=== PATIENT | male | born 1965 | race Caucasian/White ===

== ENCOUNTER 2017-01-13 21:22 | Emergency (ER) | payer MEDICAID ==
[~2017-01-13] VITALS: Ht 172.7 cm; Wt 56.8 kg
[~2017-01-13 21:22] MED LIST: ARIP10TA14 PO
[2017-01-13 22:44] VITALS: BP 141/82
== END 2017-01-13 23:17 | disposition left against medical advice (07) ==
LOC: EMS 21:28
DX: M25.532 Pain in left wrist (principal); R07.9 Chest pain, unspecified; F25.9 Schizoaffective disorder, unspecified; F15.10 Other stimulant abuse, uncomplicated; F17.210 Nicotine dependence, cigarettes, uncomplicated
CPT/HCPCS: 93005; 99285; 99406

== ENCOUNTER 2017-08-29 09:56 | Emergency (ER) | payer MEDICAID ==
[~2017-08-29] VITALS: Ht 172.7 cm; Wt 56.8 kg
[~2017-08-29 09:56] MED LIST changes: -ARIP10TA14 PO; +ARIP10TA8 PO
[2017-08-29 10:38] LABS: BASOPHILS % (AUTO) 0.5 % (0.0-2.0); EOSINOPHILS % (AUTO) 0.9 % (1.0-6.0); HEMATOCRIT 39.8 % (41-53); HEMOGLOBIN 13.4 g/dL (13.5-17.5); LYMPHOCYTES # (AUTO) 1.9 K/uL (1.0-4.8); LYMPHOCYTES % (AUTO) 27.6 % (22.0-44.0); MEAN CORPUSCULAR HEMOGLOBIN 31.2 pg (26.0-34.0); MEAN CORPUSCULAR HGB CONC 33.8 G/dL (31.0-37.0); MEAN CORPUSCULAR VOLUME 93 fL (80-100); MONOCYTES # (AUTO) 0.6 K/uL (0.1-1.0); MONOCYTES % (AUTO) 8.7 % (2.0-9.0); NEUTROPHILS # (AUTO) 4.2 K/uL (1.8-7.7); NEUTROPHILS % (AUTO) 62.3 % (40.0-70.0); PLATELET COUNT (AUTO) 362 K/uL (150-450); RED CELL DISTRIBUTION WIDTH 14.7 % (11.5-14.5)
[2017-08-29 10:52] LABS: ANION GAP 2 mmol/L (8-16); CALCIUM, TOTAL 8.4 mg/dL (8.8-10.5); CARBON DIOXIDE 30 mmol/L (22-29); CHLORIDE 103 mmol/L (98-107); CREATININE 0.91 mg/dL (0.60-1.30); GLOMERULAR FILTR. RATE CALC > 60 mL/min (>60); GLUCOSE,RANDOM 83 mg/dL (70-110); POTASSIUM 4.4 mmol/L (3.5-5.1); SODIUM SERUM 135 mmol/L (136-145); UREA NITROGEN, BLOOD 12 mg/dL (7-18)
[2017-08-29 10:54] LABS: AMPHET/METH SCREEN,URINE POSITIVE (NEGATIVE); BARBITURATE SCREEN, URINE NEGATIVE (NEGATIVE); BENZODIAZEPINES SCREEN,URINE NEGATIVE (NEGATIVE); CANNABINOID SCREEN,URINE NEGATIVE (NEGATIVE); COCAINE SCREEN,URINE NEGATIVE (NEGATIVE); METHADONE SCREEN, URINE NEGATIVE (NEGATIVE); OPIATE SCREEN,URINE NEGATIVE (NEGATIVE); PHENCYCLIDINE SCREEN,URINE NEGATIVE (NEGATIVE)
[2017-08-29 10:56] LABS: ALANINE AMINOTRANSFERASE 35 U/L (12-78); ALBUMIN 3.1 g/dL (3.4-5.0); ALKALINE PHOSPHATASE 83 U/L (46-116); ASPARTATE AMINOTRANSFERASE 25 U/L (15-37); BILIRUBIN,TOTAL 0.2 mg/dL (0.1-1.0); LIPASE 99 U/L (73-393); TOTAL PROTEIN, SERUM 6.1 g/dL (6.4-8.2)
[2017-08-29 10:59] LABS: ACETAMINOPHEN < 2 mcg/mL (10-30)
[2017-08-29 10:59] LABS: APPEARANCE,URINE CLEAR (CLEAR); BILIRUBIN,URINE NEGATIVE (NEGATIVE); GLUCOSE, URINE (UA) NEGATIVE (NEGATIVE); KETONES,URINE NEGATIVE (NEGATIVE); LEUKOCYTE ESTERASE ,URINE NEGATIVE (NEGATIVE); NITRATE,URINE NEGATIVE (NEGATIVE); OCCULT BLOOD,URINE NEGATIVE (NEGATIVE); PH,URINE 5.5 (5.0-8.0); PROTEIN,URINE NEGATIVE (NEGATIVE)
[2017-08-29 11:06] LABS: SALICYLATE 2.9 mg/dL (2.8-20.0)
[2017-08-29] MEDS ORDERED: MAGNESIUM CITRATE 300 ML ORAL SOLUTION PO ONE (12:15)
[2017-08-29 12:41] VITALS: BP 134/76
== END 2017-08-29 12:55 | disposition home or self-care (01) ==
LOC: EMS 09:59
DX: F15.10 Other stimulant abuse, uncomplicated (principal); F17.210 Nicotine dependence, cigarettes, uncomplicated; F31.9 Bipolar disorder, unspecified; F20.9 Schizophrenia, unspecified; Z71.6 Tobacco abuse counseling
CPT/HCPCS: 36415; 74022; 80053; 80307; 81003; 83690; 85025; 93005; 99285; 99406; G0480 ×2; G0481

== ENCOUNTER 2018-03-27 11:04 | Inpatient (IN) | payer MEDICAID ==
[~2018-03-27] VITALS: Ht 172.7 cm; Wt 56.2 kg
[2018-03-27 13:15] LABS: AMPHET/METH SCREEN,URINE POSITIVE (NEGATIVE); BARBITURATE SCREEN, URINE NEGATIVE (NEGATIVE); BENZODIAZEPINES SCREEN,URINE NEGATIVE (NEGATIVE); CANNABINOID SCREEN,URINE NEGATIVE (NEGATIVE); COCAINE SCREEN,URINE NEGATIVE (NEGATIVE); METHADONE SCREEN, URINE NEGATIVE (NEGATIVE); OPIATE SCREEN,URINE POSITIVE (NEGATIVE)
[2018-03-27] MEDS ORDERED: HALOPERIDOL LACTATE 5 MG/ML VIAL IM ONE (13:15)
[2018-03-27] MEDS ORDERED: LORazepam 2 MG/ML VIAL IM ONE (13:15)
[2018-03-27 13:16] LABS: BASOPHILS % (AUTO) 1.2 % (0.0-2.0); HEMOGLOBIN 14.6 g/dL (13.5-17.5); LYMPHOCYTES # (AUTO) 2.5 K/uL (1.0-4.8); LYMPHOCYTES % (AUTO) 31.9 % (22.0-44.0); MEAN CORPUSCULAR HEMOGLOBIN 32.2 pg (26.0-34.0); MEAN CORPUSCULAR HGB CONC 34.9 G/dL (31.0-37.0); MEAN CORPUSCULAR VOLUME 92 fL (80-100); MONOCYTES # (AUTO) 0.5 K/uL (0.1-1.0); MONOCYTES % (AUTO) 6.7 % (2.0-9.0); NEUTROPHILS # (AUTO) 4.5 K/uL (1.8-7.7); NEUTROPHILS % (AUTO) 57.2 % (40.0-70.0); PLATELET COUNT (AUTO) 360 K/uL (150-450); RED BLOOD CELL COUNT(AUTO) 4.54 MIL/uL (4.50-5.90)
[2018-03-27 13:25] LABS: PHENCYCLIDINE SCREEN,URINE NEGATIVE (NEGATIVE)
[2018-03-27 13:30] LABS: ANION GAP 7 mmol/L (8-16); CALCIUM, TOTAL 8.5 mg/dL (8.8-10.5); CARBON DIOXIDE 27 mmol/L (22-29); CHLORIDE 104 mmol/L (98-107); CREATININE 0.93 mg/dL (0.60-1.30); GLOMERULAR FILTR. RATE CALC > 60 mL/min (>60); GLUCOSE,RANDOM 113 mg/dL (70-110); SODIUM SERUM 138 mmol/L (136-145); UREA NITROGEN, BLOOD 18 mg/dL (7-18)
[2018-03-27 13:35] LABS: ALANINE AMINOTRANSFERASE 30 U/L (12-78); ALBUMIN 3.4 g/dL (3.4-5.0); ALKALINE PHOSPHATASE 91 U/L (46-116); ASPARTATE AMINOTRANSFERASE 25 U/L (15-37); BILIRUBIN,TOTAL 0.3 mg/dL (0.1-1.0); TOTAL PROTEIN, SERUM 6.4 g/dL (6.4-8.2)
[2018-03-27 17:53] LABS: APPEARANCE,URINE CLOUDY (CLEAR); GLUCOSE, URINE (UA) NEGATIVE (NEGATIVE); KETONES,URINE TRACE mg/dL (NEGATIVE); LEUKOCYTE ESTERASE ,URINE NEGATIVE (NEGATIVE); NITRATE,URINE NEGATIVE (NEGATIVE); OCCULT BLOOD,URINE NEGATIVE (NEGATIVE); PROTEIN,URINE NEGATIVE (NEGATIVE); UROBILINOGEN,URINE 0.2 mg/dL (<=1.0)
[2018-03-27 17:58] LABS: BILIRUBIN,URINE PRELIM. POSITIVE (NEGATIVE)
[2018-03-27 18:07] LABS: CALCIUM OXALATE CRYSTALS,UR Many /LPF (None Seen)
[2018-03-27 18:08] LABS: AMORPHOUS SEDIMENT,UR Moderate /LPF (None Seen); BACTERIA,URINE Moderate /HPF (None Seen); RBC,URINE None Seen /HPF (0-2); WBC,URINE 0-2 /HPF (0-5)
[2018-03-28] MEDS ORDERED: DOCUSATE SODIUM 100 MG CAPSULE PO PRN (07:45)
[2018-03-28] MEDS ORDERED: GuaiFENesin/D-METHORPHAN [SUGAR-FREE] 200-20MG/10 ML SYRUP UDCUP PO PRN (07:45)
[2018-03-28] MEDS ORDERED: PETROLATUM,WHITE 71 GM JELLY TP PRN (07:45)
[2018-03-28] MEDS ORDERED: ACETAMINOPHEN 325 MG TABLET PO PRN (07:45)
[2018-03-28] MEDS ORDERED: CloNIDine HCL 0.1 MG TABLET PO PRN (07:45)
[2018-03-28] MEDS ORDERED: LOPERAMIDE HCL 2 MG CAPSULE PO PRN (07:45)
[2018-03-28] MEDS ORDERED: MAGNESIUM HYDROXIDE SUSPENSION 30 ML UDCUP PO PRN (07:45)
[2018-03-28] MEDS ORDERED: ONDANSETRON HCL 4 MG TABLET PO PRN (07:45)
[2018-03-28] MEDS ORDERED: MAG HYDROX/AL HYDROX/SIMETH ES 30 ML SUSPENSION UDCUP PO PRN (07:45)
[2018-03-28] MEDS ORDERED: NICOTINE 14 MG/24 HOUR PATCH TD PRN (07:45)
[2018-03-28 08:30] VITALS: BP 132/68
[2018-03-28] MEDS: NICOTINE 21 MG/24 HOUR PATCH TD SCH (08:35)
[2018-03-28] MEDS ORDERED: ARIPiprazole 10 MG TABLET PO SCH (10:45)
[2018-03-28] MEDS: LITHIUM CARBONATE 300 MG CAPSULE PO SCH ×2 (11:22→16:28)
[2018-03-28] MEDS: LORazepam 2 MG TABLET PO PRN (16:28)
[2018-03-28] MEDS: HALOPERIDOL 5 MG TABLET PO PRN (16:28)
[2018-03-28 18:22] VITALS: BP 133/80
[2018-03-29 04:38] VITALS: BP 126/99
[2018-03-29 08:22] VITALS: BP 117/70
[2018-03-29] MEDS: NICOTINE 21 MG/24 HOUR PATCH TD SCH (08:22)
[2018-03-29] MEDS: LITHIUM CARBONATE 300 MG CAPSULE PO SCH ×2 (08:22→16:21)
[2018-03-29] MEDS: IBUPROFEN 400 MG TABLET PO PRN (08:22)
[2018-03-29] MEDS: LORazepam 2 MG TABLET PO PRN ×2 (08:29→16:21)
[2018-03-29 08:34] VITALS: BP 117/70
[2018-03-29 08:54] LABS: CHOL/HDL RATIO 3.2 (4.2-7.3); THYROID STIMULATING HORMONE 0.48 uIU/mL (0.36-3.74)
[2018-03-29 16:18] VITALS: BP 137/81
[2018-03-30 00:33] VITALS: BP 140/75
[2018-03-30] MEDS ORDERED: PNEUMOCOCCAL VACCINE POLYVALENT 0.5 ML VIAL [PPSV23] IM ONE (01:45)
[2018-03-30] MEDS: NICOTINE 21 MG/24 HOUR PATCH TD SCH (08:44)
[2018-03-30] MEDS: HALOPERIDOL 5 MG TABLET PO PRN (08:45)
[2018-03-30] MEDS: LITHIUM CARBONATE 300 MG CAPSULE PO SCH ×2 (08:45→16:11)
[2018-03-30 08:57] VITALS: BP 132/72
[2018-03-30 10:40] VITALS: BP 118/69
[2018-03-30] MEDS: IBUPROFEN 400 MG TABLET PO PRN (10:42)
[2018-03-30] MEDS: ALBUTEROL SULFATE HFA 90 MCG/PUFF 8 GM INHALER IH PRN (15:07)
[2018-03-30] MEDS: LORazepam 2 MG TABLET PO PRN (15:15)
[2018-03-30 16:30] VITALS: BP 128/81
[2018-03-31 02:44] VITALS: BP 131/74
[2018-03-31 08:37] VITALS: BP 114/68
[2018-03-31] MEDS: LITHIUM CARBONATE 300 MG CAPSULE PO SCH (08:53)
[2018-03-31] MEDS: NICOTINE 21 MG/24 HOUR PATCH TD SCH (08:54)
[2018-03-31] MEDS: LORazepam 2 MG TABLET PO PRN ×3 (09:06→21:34)
[2018-03-31] MEDS: LITHIUM CARBONATE 600 MG CAPSULE PO SCH (17:09)
[2018-03-31 18:26] VITALS: BP 129/86
[2018-04-01 02:28] VITALS: BP 113/62
[2018-04-01] MEDS: LORazepam 2 MG TABLET PO PRN ×2 (06:09→15:40)
[2018-04-01 08:43] VITALS: BP 122/79
[2018-04-01] MEDS: NICOTINE 21 MG/24 HOUR PATCH TD SCH (08:57)
[2018-04-01] MEDS: LITHIUM CARBONATE 600 MG CAPSULE PO SCH ×2 (08:58→16:04)
[2018-04-01] MEDS: ALBUTEROL SULFATE HFA 90 MCG/PUFF 8 GM INHALER IH PRN (09:01)
[2018-04-01] MEDS: HALOPERIDOL 5 MG TABLET PO PRN (11:00)
[2018-04-01 17:54] VITALS: BP 125/79
[2018-04-02 01:16] VITALS: BP 124/64
[2018-04-02 08:44] VITALS: BP 136/84
[2018-04-02] MEDS: LITHIUM CARBONATE 600 MG CAPSULE PO SCH ×2 (09:31→16:39)
[2018-04-02] MEDS: LORazepam 2 MG TABLET PO PRN ×2 (09:31→16:39)
[2018-04-02] MEDS: NICOTINE 21 MG/24 HOUR PATCH TD SCH (09:48)
[2018-04-02] MEDS ORDERED: DiphenhydrAMINE HCL 50 MG/ML VIAL IM ONE (11:00)
[2018-04-02] MEDS ORDERED: HALOPERIDOL LACTATE 5 MG/ML VIAL IM ONE (11:00)
[2018-04-02] MEDS ORDERED: LORazepam 2 MG/ML VIAL IM ONE (11:00)
[2018-04-02] MEDS ORDERED: DiphenhydrAMINE HCL 50 MG/ML VIAL ONE (11:07)
[2018-04-02] MEDS ORDERED: LORazepam 2 MG/ML VIAL ONE (11:07)
[2018-04-02] MEDS ORDERED: HALOPERIDOL LACTATE 5 MG/ML VIAL ONE (11:07)
[2018-04-02 16:00] VITALS: BP 126/72
[2018-04-03 03:27] VITALS: BP 143/64
[2018-04-03] MEDS: LORazepam 2 MG TABLET PO PRN ×3 (03:37→16:53)
[2018-04-03 08:22] VITALS: BP 136/80
[2018-04-03] MEDS: NICOTINE 21 MG/24 HOUR PATCH TD SCH (08:55)
[2018-04-03] MEDS: LITHIUM CARBONATE 600 MG CAPSULE PO SCH ×2 (08:56→16:53)
[2018-04-03] MEDS: HALOPERIDOL 5 MG TABLET PO PRN ×2 (08:56→16:53)
[2018-04-03] MEDS: IBUPROFEN 400 MG TABLET PO PRN (08:56)
[2018-04-03] MEDS ORDERED: HALOPERIDOL LACTATE 5 MG/ML VIAL IM ONE (13:30)
[2018-04-03] MEDS ORDERED: LORazepam 2 MG/ML VIAL IM ONE (13:30)
[2018-04-03] MEDS ORDERED: DiphenhydrAMINE HCL 50 MG/ML VIAL IM ONE (13:30)
[2018-04-03 14:06] VITALS: BP 116/71
[2018-04-03 17:07] VITALS: BP 120/68
[2018-04-03] MEDS: ZOLPIDEM TARTRATE 10 MG TABLET PO PRN (20:57)
[2018-04-04 03:23] VITALS: BP 146/88
[2018-04-04 08:00] VITALS: BP 111/63
[2018-04-04] MEDS: LITHIUM CARBONATE 600 MG CAPSULE PO SCH ×2 (08:34→16:40)
[2018-04-04] MEDS: LORazepam 2 MG TABLET PO PRN ×3 (08:34→16:40)
[2018-04-04] MEDS: NICOTINE 21 MG/24 HOUR PATCH TD SCH (08:34)
[2018-04-04 16:00] VITALS: BP 136/84
[2018-04-04] MEDS: HALOPERIDOL 5 MG TABLET PO PRN (16:40)
[2018-04-04] MEDS: ZOLPIDEM TARTRATE 10 MG TABLET PO PRN (20:15)
[2018-04-05 01:10] VITALS: BP 132/80
[2018-04-05] MEDS: HALOPERIDOL 5 MG TABLET PO PRN (06:39)
[2018-04-05] MEDS: LORazepam 2 MG TABLET PO PRN (06:39)
[2018-04-05] MEDS: LITHIUM CARBONATE 600 MG CAPSULE PO SCH (08:12)
[2018-04-05] MEDS: NICOTINE 21 MG/24 HOUR PATCH TD SCH (08:12)
[2018-04-05] MEDS ORDERED: LITH600 PO ×2 (08:29→09:18)
[2018-04-05 08:31] VITALS: BP 134/78
== END 2018-04-05 13:45 | disposition home or self-care (01) | DRG 750 ==
LOC: EMS 11:05 → UNDOADMIN 21:00 → B2S 21:00 → B3A 04-02 11:35
DX: F25.1 Schizoaffective disorder, depressive type (principal); E83.51 Hypocalcemia; R45.851 Suicidal ideations; F15.10 Other stimulant abuse, uncomplicated; M54.9 Dorsalgia, unspecified; F41.9 Anxiety disorder, unspecified; G89.29 Other chronic pain; F17.210 Nicotine dependence, cigarettes, uncomplicated; J44.9 Chronic obstructive pulmonary disease, unspecified; K59.00 Constipation, unspecified; Z59.0 Homelessness; Z79.899 Other long term (current) drug therapy; Z91.5 Personal history of self-harm; Z71.6 Tobacco abuse counseling; Z71.51 Drug abuse counseling and surveillance of drug abuser; Z28.21 Immunization not carried out because of patient refusal
CPT/HCPCS: 83036; 84443; 87081; 87086; 96372; 99285; G0480; J1200; J1630; J2060; J3535

== ENCOUNTER 2018-04-09 12:28 | Emergency (ER) | payer MEDICAID ==
[~2018-04-09] VITALS: Ht 172.7 cm; Wt 54.5 kg
[~2018-04-09 12:28] MED LIST changes: -ARIP10TA8 PO; +LITH600 PO
[2018-04-09 12:59] LABS: BASOPHILS % (AUTO) 1.3 % (0.0-2.0); EOSINOPHILS % (AUTO) 3.5 % (1.0-6.0); HEMATOCRIT 37.8 % (41-53); HEMOGLOBIN 12.7 g/dL (13.5-17.5); LYMPHOCYTES # (AUTO) 2.3 K/uL (1.0-4.8); LYMPHOCYTES % (AUTO) 34.7 % (22.0-44.0); MEAN CORPUSCULAR HEMOGLOBIN 31.7 pg (26.0-34.0); MEAN CORPUSCULAR HGB CONC 33.6 G/dL (31.0-37.0); MEAN CORPUSCULAR VOLUME 94 fL (80-100); MONOCYTES # (AUTO) 0.9 K/uL (0.1-1.0); MONOCYTES % (AUTO) 13.6 % (2.0-9.0); NEUTROPHILS # (AUTO) 3.1 K/uL (1.8-7.7); NEUTROPHILS % (AUTO) 46.9 % (40.0-70.0); PLATELET COUNT (AUTO) 347 K/uL (150-450); RED BLOOD CELL COUNT(AUTO) 4.01 MIL/uL (4.50-5.90); RED CELL DISTRIBUTION WIDTH 14.3 % (11.5-14.5)
[2018-04-09] MEDS ORDERED: HALOPERIDOL 5 MG TABLET PO ONE (13:00)
[2018-04-09] MEDS ORDERED: LORazepam 2 MG TABLET PO ONE (13:00)
[2018-04-09 13:17] LABS: LITHIUM < 0.20 mmol/L (0.60-1.20)
[2018-04-09 13:18] LABS: ANION GAP 7 mmol/L (8-16); CALCIUM, TOTAL 9.1 mg/dL (8.8-10.5); CARBON DIOXIDE 29 mmol/L (22-29); CHLORIDE 107 mmol/L (98-107); CREATININE 0.98 mg/dL (0.60-1.30); GLOMERULAR FILTR. RATE CALC > 60 mL/min (>60); GLUCOSE,RANDOM 87 mg/dL (70-110); POTASSIUM 4.3 mmol/L (3.5-5.1); SODIUM SERUM 143 mmol/L (136-145); UREA NITROGEN, BLOOD 23 mg/dL (7-18)
[2018-04-09 13:21] LABS: ALANINE AMINOTRANSFERASE 44 U/L (12-78); ALBUMIN 3.1 g/dL (3.4-5.0); ALKALINE PHOSPHATASE 87 U/L (46-116); ASPARTATE AMINOTRANSFERASE 34 U/L (15-37); BILIRUBIN,TOTAL 0.4 mg/dL (0.1-1.0); TOTAL PROTEIN, SERUM 6.3 g/dL (6.4-8.2)
[2018-04-09 13:21] LABS: BARBITURATE SCREEN, URINE NEGATIVE (NEGATIVE); BENZODIAZEPINES SCREEN,URINE NEGATIVE (NEGATIVE); CANNABINOID SCREEN,URINE NEGATIVE (NEGATIVE); COCAINE SCREEN,URINE NEGATIVE (NEGATIVE); METHADONE SCREEN, URINE NEGATIVE (NEGATIVE); OPIATE SCREEN,URINE NEGATIVE (NEGATIVE)
[2018-04-09 13:24] LABS: PHENCYCLIDINE SCREEN,URINE NEGATIVE (NEGATIVE)
[2018-04-09 13:49] LABS: AMPHET/METH SCREEN,URINE POSITIVE (NEGATIVE)
[2018-04-09 14:07] VITALS: BP 118/85
== END 2018-04-09 14:49 | disposition home or self-care (01) ==
LOC: EMS 12:32
DX: F25.9 Schizoaffective disorder, unspecified (principal); F31.9 Bipolar disorder, unspecified; J44.9 Chronic obstructive pulmonary disease, unspecified; F15.10 Other stimulant abuse, uncomplicated; F17.210 Nicotine dependence, cigarettes, uncomplicated
CPT/HCPCS: 36415; 80053; 80178; 80307; 85025; 99284; G0480

== ENCOUNTER 2018-04-21 10:11 | Inpatient (IN) | payer MEDICAID ==
[~2018-04-21] VITALS: Ht 172.7 cm; Wt 63.5 kg
[2018-04-21] MEDS ORDERED: LITH300C3 PO (10:38)
[2018-04-21] MEDS ORDERED: LORazepam 2 MG TABLET PO ONE (11:00)
[2018-04-21] MEDS ORDERED: HALOPERIDOL 5 MG TABLET PO ONE (11:00)
[2018-04-21 11:14] LABS: BASOPHILS % (AUTO) 0.6 % (0.0-2.0); EOSINOPHILS % (AUTO) 2.2 % (1.0-6.0); HEMATOCRIT 36.3 % (41-53); HEMOGLOBIN 12.5 g/dL (13.5-17.5); LYMPHOCYTES # (AUTO) 2.1 K/uL (1.0-4.8); LYMPHOCYTES % (AUTO) 22.1 % (22.0-44.0); MEAN CORPUSCULAR HEMOGLOBIN 32.2 pg (26.0-34.0); MEAN CORPUSCULAR HGB CONC 34.3 G/dL (31.0-37.0); MEAN CORPUSCULAR VOLUME 94 fL (80-100); MONOCYTES % (AUTO) 10.7 % (2.0-9.0); NEUTROPHILS # (AUTO) 6.3 K/uL (1.8-7.7); NEUTROPHILS % (AUTO) 64.4 % (40.0-70.0); PLATELET COUNT (AUTO) 405 K/uL (150-450); RED BLOOD CELL COUNT(AUTO) 3.87 MIL/uL (4.50-5.90); RED CELL DISTRIBUTION WIDTH 14.9 % (11.5-14.5)
[2018-04-21 11:21] LABS: AMPHET/METH SCREEN,URINE NEGATIVE (NEGATIVE); BARBITURATE SCREEN, URINE NEGATIVE (NEGATIVE); BENZODIAZEPINES SCREEN,URINE NEGATIVE (NEGATIVE); CANNABINOID SCREEN,URINE POSITIVE (NEGATIVE); COCAINE SCREEN,URINE NEGATIVE (NEGATIVE); METHADONE SCREEN, URINE NEGATIVE (NEGATIVE); OPIATE SCREEN,URINE NEGATIVE (NEGATIVE)
[2018-04-21 11:27] LABS: PHENCYCLIDINE SCREEN,URINE NEGATIVE (NEGATIVE)
[2018-04-21 11:29] LABS: ANION GAP 5 mmol/L (8-16); CARBON DIOXIDE 29 mmol/L (22-29); CHLORIDE 105 mmol/L (98-107); CREATININE 0.84 mg/dL (0.60-1.30); GLOMERULAR FILTR. RATE CALC > 60 mL/min (>60); GLUCOSE,RANDOM 90 mg/dL (70-110); POTASSIUM 4.6 mmol/L (3.5-5.1); SODIUM SERUM 139 mmol/L (136-145); UREA NITROGEN, BLOOD 12 mg/dL (7-18)
[2018-04-21 11:35] LABS: ALANINE AMINOTRANSFERASE 39 U/L (12-78); ALBUMIN 3.2 g/dL (3.4-5.0); ALKALINE PHOSPHATASE 106 U/L (46-116); ASPARTATE AMINOTRANSFERASE 30 U/L (15-37); BILIRUBIN,TOTAL 0.3 mg/dL (0.1-1.0); TOTAL PROTEIN, SERUM 6.4 g/dL (6.4-8.2)
[2018-04-21] MEDS ORDERED: ZOLPIDEM TARTRATE 10 MG TABLET PO PRN (12:00)
[2018-04-21 12:13] LABS: LITHIUM < 0.20 mmol/L (0.60-1.20)
[2018-04-21] MEDS ORDERED: IBUPROFEN 400 MG TABLET PO PRN (12:15)
[2018-04-21] MEDS ORDERED: ACETAMINOPHEN 325 MG TABLET PO PRN (12:15)
[2018-04-21 17:35] VITALS: BP 132/86
[2018-04-21] MEDS ORDERED: PNEUMOCOCCAL VACCINE POLYVALENT 0.5 ML VIAL [PPSV23] IM ONE (20:30)
[2018-04-22 04:45] VITALS: BP 124/77
[2018-04-22] MEDS: LORazepam 2 MG TABLET PO PRN (05:02)
[2018-04-22 07:05] LABS: BASOPHILS % (AUTO) 1.1 % (0.0-2.0); EOSINOPHILS % (AUTO) 3.6 % (1.0-6.0); HEMATOCRIT 38.1 % (41-53); HEMOGLOBIN 13.1 g/dL (13.5-17.5); LYMPHOCYTES # (AUTO) 1.9 K/uL (1.0-4.8); LYMPHOCYTES % (AUTO) 28.2 % (22.0-44.0); MEAN CORPUSCULAR HEMOGLOBIN 31.8 pg (26.0-34.0); MEAN CORPUSCULAR HGB CONC 34.3 G/dL (31.0-37.0); MEAN CORPUSCULAR VOLUME 93 fL (80-100); MONOCYTES # (AUTO) 0.7 K/uL (0.1-1.0); MONOCYTES % (AUTO) 10.3 % (2.0-9.0); NEUTROPHILS # (AUTO) 3.8 K/uL (1.8-7.7); NEUTROPHILS % (AUTO) 56.8 % (40.0-70.0); PLATELET COUNT (AUTO) 368 K/uL (150-450); RED BLOOD CELL COUNT(AUTO) 4.11 MIL/uL (4.50-5.90); RED CELL DISTRIBUTION WIDTH 14.9 % (11.5-14.5)
[2018-04-22 07:35] LABS: PLATELET MORPHOLOGY COMMENT NORMAL
[2018-04-22 07:40] LABS: ALANINE AMINOTRANSFERASE 40 U/L (12-78); ALKALINE PHOSPHATASE 89 U/L (46-116); ANION GAP 5 mmol/L (8-16); ASPARTATE AMINOTRANSFERASE 32 U/L (15-37); BILIRUBIN,TOTAL 0.4 mg/dL (0.1-1.0); CARBON DIOXIDE 29 mmol/L (22-29); CHLORIDE 107 mmol/L (98-107); CHOL/HDL RATIO 2.9 (4.2-7.3); CHOLESTEROL 176 mg/dL (131-200); GLOMERULAR FILTR. RATE CALC > 60 mL/min (>60); GLUCOSE,RANDOM 104 mg/dL (70-110); HDL CHOLESTEROL 61 mg/dL (40-60); LDL CHOL (CALC.) 100 mg/dL (0-130); SODIUM SERUM 141 mmol/L (136-145); TOTAL PROTEIN, SERUM 5.9 g/dL (6.4-8.2); TRIGLYCERIDES 74 mg/dL (15-150); UREA NITROGEN, BLOOD 15 mg/dL (7-18)
[2018-04-22] MEDS: NICOTINE 14 MG/24 HOUR PATCH TD SCH (10:55)
[2018-04-22 11:55] VITALS: BP 108/68
[2018-04-22] MEDS: QUEtiapine FUMARATE 100 MG TABLET PO PRN (14:54)
[2018-04-22] MEDS: LITHIUM CARBONATE 300 MG CAPSULE PO SCH (17:15)
[2018-04-22 19:30] VITALS: BP 99/66
[2018-04-22] MEDS: QUEtiapine FUMARATE 200 MG TABLET PO SCH (20:36)
[2018-04-23] MEDS: NICOTINE 14 MG/24 HOUR PATCH TD SCH (07:53)
[2018-04-23] MEDS: LORazepam 2 MG TABLET PO PRN (07:53)
[2018-04-23] MEDS: LITHIUM CARBONATE 300 MG CAPSULE PO SCH ×2 (07:53→17:14)
[2018-04-23 08:11] VITALS: BP 126/83
[2018-04-23] MEDS: QUEtiapine FUMARATE 100 MG TABLET PO PRN (13:07)
[2018-04-23 17:58] VITALS: BP 130/77
[2018-04-23] MEDS: QUEtiapine FUMARATE 200 MG TABLET PO SCH (21:24)
[2018-04-24 08:00] VITALS: BP 120/70
[2018-04-24] MEDS: LITHIUM CARBONATE 300 MG CAPSULE PO SCH ×2 (09:22→17:44)
[2018-04-24] MEDS: NICOTINE 14 MG/24 HOUR PATCH TD SCH (09:23)
[2018-04-24 16:00] VITALS: BP 116/74
[2018-04-24] MEDS: QUEtiapine FUMARATE 200 MG TABLET PO SCH (20:30)
[2018-04-25] MEDS: LITHIUM CARBONATE 300 MG CAPSULE PO SCH ×2 (08:35→16:31)
[2018-04-25] MEDS: NICOTINE 14 MG/24 HOUR PATCH TD SCH (08:37)
[2018-04-25 10:01] VITALS: BP 111/64
[2018-04-25 16:57] VITALS: BP 119/65
[2018-04-25] MEDS: QUEtiapine FUMARATE 200 MG TABLET PO SCH (20:22)
[2018-04-26] MEDS: NICOTINE 14 MG/24 HOUR PATCH TD SCH (09:10)
[2018-04-26] MEDS: LITHIUM CARBONATE 300 MG CAPSULE PO SCH ×2 (09:10→17:00)
[2018-04-26 09:41] VITALS: BP 109/60
[2018-04-26 17:16] VITALS: BP 111/71
[2018-04-26] MEDS: QUEtiapine FUMARATE 200 MG TABLET PO SCH (20:56)
[2018-04-27] MEDS: NICOTINE 14 MG/24 HOUR PATCH TD SCH (10:52)
[2018-04-27] MEDS: LITHIUM CARBONATE 300 MG CAPSULE PO SCH ×2 (10:52→20:13)
[2018-04-27 12:54] VITALS: BP 125/64
[2018-04-27 17:00] VITALS: BP 124/73
[2018-04-27] MEDS: QUEtiapine FUMARATE 200 MG TABLET PO SCH (20:14)
[2018-04-28 08:00] VITALS: BP 128/86
[2018-04-28] MEDS: LITHIUM CARBONATE 300 MG CAPSULE PO SCH ×2 (09:11→16:43)
[2018-04-28] MEDS: NICOTINE 14 MG/24 HOUR PATCH TD SCH (09:12)
[2018-04-28 17:06] VITALS: BP 130/69
[2018-04-28] MEDS: QUEtiapine FUMARATE 200 MG TABLET PO SCH (20:06)
[2018-04-29 08:32] VITALS: BP 118/58
[2018-04-29] MEDS: LITHIUM CARBONATE 300 MG CAPSULE PO SCH ×2 (09:22→17:04)
[2018-04-29] MEDS: NICOTINE 14 MG/24 HOUR PATCH TD SCH (09:23)
[2018-04-29] MEDS ORDERED: BENZOCAINE/MENTHOL LOZENGE PO PRN (13:15)
[2018-04-29] MEDS ORDERED: QUET200T PO (13:30)
[2018-04-29] MEDS ORDERED: ALBU8HFA IH (13:31)
== END 2018-04-29 17:09 | disposition home or self-care (01) | DRG 750 ==
LOC: EMS 10:13 → 3EI 15:16
DX: F25.1 Schizoaffective disorder, depressive type (principal); R45.851 Suicidal ideations; Z91.14 Patient's other noncompliance with medication regimen; G89.29 Other chronic pain; M54.9 Dorsalgia, unspecified; R45.87 Impulsiveness; F12.10 Cannabis abuse, uncomplicated; J44.9 Chronic obstructive pulmonary disease, unspecified; F17.210 Nicotine dependence, cigarettes, uncomplicated; F31.9 Bipolar disorder, unspecified; F15.90 Other stimulant use, unspecified, uncomplicated; D64.9 Anemia, unspecified; K59.00 Constipation, unspecified; F41.9 Anxiety disorder, unspecified; Z71.6 Tobacco abuse counseling; Z71.51 Drug abuse counseling and surveillance of drug abuser
CPT/HCPCS: 83036; 84443; 87081; 99285; G0480

== ENCOUNTER 2018-05-17 17:49 | Inpatient (IN) | payer MEDICAID ==
[~2018-05-17] VITALS: Ht 172.7 cm; Wt 65.2 kg
[~2018-05-17 17:49] MED LIST changes: +ALBU8HFA IH; +LITH300C3 PO; -LITH600 PO; +QUET200T PO
[2018-05-17 18:41] LABS: BASOPHILS % (AUTO) 1.5 % (0.0-2.0); EOSINOPHILS % (AUTO) 8.5 % (1.0-6.0); HEMATOCRIT 35.7 % (41-53); HEMOGLOBIN 12.1 g/dL (13.5-17.5); LYMPHOCYTES # (AUTO) 2.4 K/uL (1.0-4.8); LYMPHOCYTES % (AUTO) 30.2 % (22.0-44.0); MEAN CORPUSCULAR HEMOGLOBIN 31.5 pg (26.0-34.0); MEAN CORPUSCULAR HGB CONC 33.8 G/dL (31.0-37.0); MEAN CORPUSCULAR VOLUME 93 fL (80-100); MONOCYTES # (AUTO) 0.8 K/uL (0.1-1.0); MONOCYTES % (AUTO) 10.6 % (2.0-9.0); NEUTROPHILS # (AUTO) 3.9 K/uL (1.8-7.7); NEUTROPHILS % (AUTO) 49.2 % (40.0-70.0); PLATELET COUNT (AUTO) 312 K/uL (150-450); RED BLOOD CELL COUNT(AUTO) 3.84 MIL/uL (4.50-5.90); RED CELL DISTRIBUTION WIDTH 15.4 % (11.5-14.5)
[2018-05-17 18:55] LABS: ANION GAP 8 mmol/L (8-16); CALCIUM, TOTAL 8.7 mg/dL (8.8-10.5); CARBON DIOXIDE 26 mmol/L (22-29); CHLORIDE 107 mmol/L (98-107); CREATININE 1.09 mg/dL (0.60-1.30); GLOMERULAR FILTR. RATE CALC > 60 mL/min (>60); GLUCOSE,RANDOM 90 mg/dL (70-110); POTASSIUM 3.6 mmol/L (3.5-5.1); SODIUM SERUM 141 mmol/L (136-145); UREA NITROGEN, BLOOD 19 mg/dL (7-18)
[2018-05-17 19:02] LABS: ALANINE AMINOTRANSFERASE 23 U/L (12-78); ALBUMIN 3.1 g/dL (3.4-5.0); ALKALINE PHOSPHATASE 89 U/L (46-116); ASPARTATE AMINOTRANSFERASE 15 U/L (15-37); BILIRUBIN,TOTAL 0.2 mg/dL (0.1-1.0); TOTAL PROTEIN, SERUM 6.3 g/dL (6.4-8.2)
[2018-05-17] MEDS ORDERED: HALOPERIDOL 5 MG TABLET PO PRN (19:30)
[2018-05-17] MEDS ORDERED: LORazepam 2 MG TABLET PO PRN (19:30)
[2018-05-17] MEDS ORDERED: ZOLPIDEM TARTRATE 10 MG TABLET PO PRN (19:30)
[2018-05-17 21:30] VITALS: BP 105/54
[2018-05-17 21:33] LABS: AMPHET/METH SCREEN,URINE POSITIVE (NEGATIVE); BARBITURATE SCREEN, URINE NEGATIVE (NEGATIVE); BENZODIAZEPINES SCREEN,URINE NEGATIVE (NEGATIVE); CANNABINOID SCREEN,URINE NEGATIVE (NEGATIVE); COCAINE SCREEN,URINE NEGATIVE (NEGATIVE); METHADONE SCREEN, URINE NEGATIVE (NEGATIVE); OPIATE SCREEN,URINE NEGATIVE (NEGATIVE)
[2018-05-17 21:34] LABS: PHENCYCLIDINE SCREEN,URINE NEGATIVE (NEGATIVE)
[2018-05-17] MEDS ORDERED: MAG HYDROX/AL HYDROX/SIMETH ES 30 ML SUSPENSION UDCUP PO PRN (22:00)
[2018-05-17] MEDS ORDERED: ACETAMINOPHEN 325 MG TABLET PO PRN (22:00)
[2018-05-17] MEDS ORDERED: IBUPROFEN 400 MG TABLET PO PRN (22:00)
[2018-05-17] MEDS ORDERED: ONDANSETRON HCL 4 MG TABLET PO PRN (22:00)
[2018-05-17] MEDS ORDERED: CloNIDine HCL 0.1 MG TABLET PO PRN (22:00)
[2018-05-17] MEDS ORDERED: MAGNESIUM HYDROXIDE SUSPENSION 30 ML UDCUP PO PRN (22:00)
[2018-05-17] MEDS ORDERED: LOPERAMIDE HCL 2 MG CAPSULE PO PRN (22:00)
[2018-05-17] MEDS ORDERED: PETROLATUM,WHITE 71 GM JELLY TP PRN (22:00)
[2018-05-17] MEDS ORDERED: DOCUSATE SODIUM 100 MG CAPSULE PO PRN (22:00)
[2018-05-17] MEDS ORDERED: ALBUTEROL SULFATE HFA 90 MCG/PUFF 8 GM INHALER IH PRN (22:00)
[2018-05-17] MEDS ORDERED: GuaiFENesin/D-METHORPHAN [SUGAR-FREE] 200-20MG/10 ML SYRUP UDCUP PO PRN (22:00)
[2018-05-18 06:34] LABS: BASOPHILS % (AUTO) 1.3 % (0.0-2.0); EOSINOPHILS % (AUTO) 11.1 % (1.0-6.0); LYMPHOCYTES # (AUTO) 1.8 K/uL (1.0-4.8); LYMPHOCYTES % (AUTO) 32.4 % (22.0-44.0); MEAN CORPUSCULAR HEMOGLOBIN 31.6 pg (26.0-34.0); MEAN CORPUSCULAR HGB CONC 33.3 G/dL (31.0-37.0); MEAN CORPUSCULAR VOLUME 95 fL (80-100); MONOCYTES # (AUTO) 0.7 K/uL (0.1-1.0); MONOCYTES % (AUTO) 12.3 % (2.0-9.0); NEUTROPHILS # (AUTO) 2.4 K/uL (1.8-7.7); NEUTROPHILS % (AUTO) 42.9 % (40.0-70.0); PLATELET COUNT (AUTO) 302 K/uL (150-450); RED CELL DISTRIBUTION WIDTH 15.5 % (11.5-14.5)
[2018-05-18 06:59] LABS: ALANINE AMINOTRANSFERASE 24 U/L (12-78); ALBUMIN 2.9 g/dL (3.4-5.0); ALKALINE PHOSPHATASE 78 U/L (46-116); ANION GAP 4 mmol/L (8-16); ASPARTATE AMINOTRANSFERASE 19 U/L (15-37); BILIRUBIN,TOTAL 0.3 mg/dL (0.1-1.0); CALCIUM, TOTAL 8.3 mg/dL (8.8-10.5); CARBON DIOXIDE 27 mmol/L (22-29); CHLORIDE 109 mmol/L (98-107); CHOL/HDL RATIO 3.5 (4.2-7.3); CHOLESTEROL 149 mg/dL (131-200); CREATININE 0.68 mg/dL (0.60-1.30); GLOMERULAR FILTR. RATE CALC > 60 mL/min (>60); GLUCOSE,RANDOM 106 mg/dL (70-110); HDL CHOLESTEROL 43 mg/dL (40-60); LDL CHOL (CALC.) 91 mg/dL (0-130); SODIUM SERUM 140 mmol/L (136-145); THYROID STIMULATING HORMONE 0.67 uIU/mL (0.36-3.74); TRIGLYCERIDES 73 mg/dL (15-150); UREA NITROGEN, BLOOD 17 mg/dL (7-18)
[2018-05-18 08:59] VITALS: BP 136/78
[2018-05-18] MEDS ORDERED: LORATADINE 10 MG TABLET PO SCH (09:00)
[2018-05-18] MEDS: LORATADINE 10 MG TABLET PO SCH (10:45)
[2018-05-18] MEDS: NICOTINE 14 MG/24 HOUR PATCH TD PRN (15:54)
[2018-05-18] MEDS: LITHIUM CARBONATE 600 MG CAPSULE PO SCH (16:30)
[2018-05-18 17:22] VITALS: BP 108/57
[2018-05-18] MEDS: QUEtiapine FUMARATE 200 MG TABLET PO SCH (20:27)
[2018-05-19 07:43] LABS: % IRON SATURATION 18.5 % (30-44)
[2018-05-19] MEDS: LITHIUM CARBONATE 600 MG CAPSULE PO SCH ×2 (10:10→16:39)
[2018-05-19] MEDS: LORATADINE 10 MG TABLET PO SCH (10:10)
[2018-05-19] MEDS: NICOTINE 14 MG/24 HOUR PATCH TD PRN (10:12)
[2018-05-19 12:37] VITALS: BP 126/72
[2018-05-19 17:04] VITALS: BP 124/78
[2018-05-19] MEDS: QUEtiapine FUMARATE 200 MG TABLET PO SCH (20:32)
[2018-05-20 09:02] VITALS: BP 143/75
[2018-05-20] MEDS: LORATADINE 10 MG TABLET PO SCH (10:45)
[2018-05-20] MEDS: LITHIUM CARBONATE 600 MG CAPSULE PO SCH ×2 (10:45→16:25)
[2018-05-20] MEDS: NICOTINE 14 MG/24 HOUR PATCH TD PRN (10:49)
[2018-05-20 17:00] VITALS: BP 98/60
[2018-05-20] MEDS: QUEtiapine FUMARATE 200 MG TABLET PO SCH (21:02)
[2018-05-21] MEDS: LORATADINE 10 MG TABLET PO SCH (09:38)
[2018-05-21] MEDS: LITHIUM CARBONATE 600 MG CAPSULE PO SCH (09:38)
[2018-05-21] MEDS: NICOTINE 14 MG/24 HOUR PATCH TD PRN (09:38)
[2018-05-21 10:34] VITALS: BP 97/64
[2018-05-21] MEDS ORDERED: QUET200T PO (13:24)
[2018-05-21] MEDS ORDERED: LITH600 PO (13:24)
[2018-05-21] MEDS ORDERED: LORA10TA7 PO (13:25)
== END 2018-05-21 16:30 | disposition home or self-care (01) | DRG 750 ==
LOC: EMS 17:50 → 3EI 20:40
DX: F25.0 Schizoaffective disorder, bipolar type (principal); E44.0 Moderate protein-calorie malnutrition; R45.851 Suicidal ideations; F41.9 Anxiety disorder, unspecified; J44.9 Chronic obstructive pulmonary disease, unspecified; F17.210 Nicotine dependence, cigarettes, uncomplicated; D64.9 Anemia, unspecified; F15.10 Other stimulant abuse, uncomplicated; Z71.6 Tobacco abuse counseling; Z71.51 Drug abuse counseling and surveillance of drug abuser; Z79.899 Other long term (current) drug therapy; Z68.21 Body mass index [BMI] 21.0-21.9, adult; Z59.0 Homelessness
CPT/HCPCS: 82728; 83036; 83540; 83550; 84443; 87081; 90686; 99285; G0480

== ENCOUNTER 2019-02-25 21:10 | Emergency (ER) | payer MEDICAID ==
[~2019-02-25] VITALS: Ht 172.7 cm; Wt 61.4 kg
[~2019-02-25 21:10] MED LIST changes: -ALBU8HFA IH; -LITH300C3 PO; +LITH600 PO; +LORA10TA7 PO
[2019-02-25 21:12] VITALS: BP 151/112
[2019-02-25 22:02] LABS: BASOPHILS % (AUTO) 0.8 % (0.0-2.0); EOSINOPHILS % (AUTO) 2.1 % (1.0-6.0); HEMOGLOBIN 12.3 g/dL (13.5-17.5); LYMPHOCYTES # (AUTO) 2.4 K/uL (1.0-4.8); LYMPHOCYTES % (AUTO) 16.6 % (22.0-44.0); MEAN CORPUSCULAR HEMOGLOBIN 30.9 pg (26.0-34.0); MEAN CORPUSCULAR HGB CONC 32.4 G/dL (31.0-37.0); MEAN CORPUSCULAR VOLUME 95 fL (80-100); MONOCYTES # (AUTO) 1.5 K/uL (0.1-1.0); MONOCYTES % (AUTO) 10.4 % (2.0-9.0); NEUTROPHILS # (AUTO) 9.9 K/uL (1.8-7.7); NEUTROPHILS % (AUTO) 70.1 % (40.0-70.0); PLATELET COUNT (AUTO) 469 K/uL (150-450); RED BLOOD CELL COUNT(AUTO) 3.98 MIL/uL (4.50-5.90); RED CELL DISTRIBUTION WIDTH 14.5 % (11.5-14.5)
[2019-02-25 22:29] LABS: ANION GAP 8 mmol/L (8-16); CALCIUM, TOTAL 9.5 mg/dL (8.8-10.5); CARBON DIOXIDE 29 mmol/L (22-29); CHLORIDE 104 mmol/L (98-107); CREATININE 0.92 mg/dL (0.60-1.30); GLOMERULAR FILTR. RATE CALC > 60 mL/min (>60); GLUCOSE,RANDOM 120 mg/dL (70-110); POTASSIUM 4.6 mmol/L (3.5-5.1); SODIUM SERUM 141 mmol/L (136-145); UREA NITROGEN, BLOOD 24 mg/dL (7-18)
[2019-02-25 22:34] LABS: ALANINE AMINOTRANSFERASE 32 U/L (12-78); ALBUMIN 3.2 g/dL (3.4-5.0); ALKALINE PHOSPHATASE 93 U/L (46-116); ASPARTATE AMINOTRANSFERASE 29 U/L (15-37); BILIRUBIN,TOTAL 0.3 mg/dL (0.1-1.0); TOTAL PROTEIN, SERUM 6.7 g/dL (6.4-8.2)
== END 2019-02-25 23:40 | disposition home or self-care (01) ==
LOC: EMS 21:12
DX: F20.9 Schizophrenia, unspecified (principal); J44.9 Chronic obstructive pulmonary disease, unspecified; F31.9 Bipolar disorder, unspecified; F17.210 Nicotine dependence, cigarettes, uncomplicated; F15.90 Other stimulant use, unspecified, uncomplicated
CPT/HCPCS: 36415; 80053; 85025; 99284; G0480

== ENCOUNTER 2019-11-07 20:13 | Emergency (ER) | payer SELFPAY ==
[~2019-11-07] VITALS: Ht 172.7 cm; Wt 70.5 kg
[2019-11-07 22:52] LABS: BASOPHILS % (AUTO) 1.2 % (0.0-2.0); EOSINOPHILS % (AUTO) 5.5 % (1.0-6.0); HEMATOCRIT 38.9 % (41-53); HEMOGLOBIN 12.7 g/dL (13.5-17.5); LYMPHOCYTES # (AUTO) 1.9 K/uL (1.0-4.8); LYMPHOCYTES % (AUTO) 31.6 % (22.0-44.0); MEAN CORPUSCULAR HEMOGLOBIN 30.5 pg (26.0-34.0); MEAN CORPUSCULAR HGB CONC 32.6 G/dL (31.0-37.0); MEAN CORPUSCULAR VOLUME 94 fL (80-100); MONOCYTES # (AUTO) 0.7 K/uL (0.1-1.0); MONOCYTES % (AUTO) 11.1 % (2.0-9.0); NEUTROPHILS % (AUTO) 50.6 % (40.0-70.0); PLATELET COUNT (AUTO) 371 K/uL (150-450); RED BLOOD CELL COUNT(AUTO) 4.15 MIL/uL (4.50-5.90); RED CELL DISTRIBUTION WIDTH 13.9 % (11.5-14.5)
[2019-11-07 23:05] LABS: ANION GAP 10 mmol/L (8-16); CALCIUM, TOTAL 8.8 mg/dL (8.8-10.5); CARBON DIOXIDE 26 mmol/L (22-29); CHLORIDE 111 mmol/L (98-107); CREATININE 0.89 mg/dL (0.60-1.30); GLOMERULAR FILTR. RATE CALC > 60 mL/min (>60); GLUCOSE,RANDOM 151 mg/dL (70-110); POTASSIUM 4.6 mmol/L (3.5-5.1); SODIUM SERUM 147 mmol/L (136-145); UREA NITROGEN, BLOOD 21 mg/dL (7-18)
[2019-11-07 23:11] LABS: ALANINE AMINOTRANSFERASE 30 U/L (12-78); ALBUMIN 2.9 g/dL (3.4-5.0); ALKALINE PHOSPHATASE 93 U/L (46-116); ASPARTATE AMINOTRANSFERASE 18 U/L (15-37); BILIRUBIN,TOTAL 0.1 mg/dL (0.1-1.0)
[2019-11-07 23:13] LABS: LACTIC ACID 1.2 mmol/L (0.4-2.0)
[2019-11-08 03:05] VITALS: BP 128/79
== END 2019-11-08 03:12 | disposition home or self-care (01) ==
LOC: EMS 20:16
DX: F20.9 Schizophrenia, unspecified (principal); F31.9 Bipolar disorder, unspecified; J44.9 Chronic obstructive pulmonary disease, unspecified; F15.90 Other stimulant use, unspecified, uncomplicated; F17.210 Nicotine dependence, cigarettes, uncomplicated
CPT/HCPCS: 36415; 71045; 80053; 83605; 84145; 84484; 85025; 99284; G0480